=== PATIENT | male | born 1940 | race Caucasian/White ===

== ENCOUNTER 2017-01-29 15:17 | Inpatient (IN) | payer MEDICARE, OTHER ==
[2017-01-29 15:54] LABS: BASOPHILS % (AUTO) 0 % (0-3); EOSINOPHILS % (AUTO) 0 % (0-9); HEMATOCRIT 45 % (39-53); MEAN CORPUSCULAR HGB CONC 32.9 gm/dl (32.0-36.0); MEAN CORPUSCULAR VOLUME 94 fL (80-100); MONOCYTES % (AUTO) 8.6 % (0-12); NEUTROPHILS % (AUTO) 80.4 % (37-80)
[2017-01-29 16:11] LABS: ALBUMIN 3.4 gm/dl (3.4-5.0); CALCIUM 8.9 mg/dl (8.5-10.1); POTASSIUM 3.7 mMol/L (3.5-5.1)
[2017-01-29] MEDS ORDERED: PATIENT EDUCATION 1 MISC PRN (16:19)
[2017-01-29] MEDS ORDERED: NITROGLYCERIN 0.4 MG TAB SL PRN (17:34)
[2017-01-29] MEDS ORDERED: ACETAMINOPHEN 325 MG PO PRN (17:48)
[2017-01-29] MEDS ORDERED: MORPHINE SULFATE 10 MG/ML SOL IV PRN (17:49)
[2017-01-29 19:24] LABS: ABG PH 7.4 (7.35-7.45)
[2017-01-29] MEDS ORDERED: CEFTRIAXONE 1 GM PDS ONE (20:05)
[2017-01-29] MEDS ORDERED: SODIUM CHLORIDE 0.9% 100 ML 100 ML IV ONE (20:05)
[2017-01-29] MEDS: SOLUMEDROL 125 MG/2 ML 125 MG/2 ML PDS IV SCH (20:23)
[2017-01-29] MEDS: SODIUM CHLORIDE 0.9% FLUSH 10 ML SOL IV SCH (20:24)
[2017-01-29] MEDS: CEFTRIAXONE 1 GM PDS 1 GM in SODIUM CHLORIDE 0.9% 100 ML 100 ML IV SCH (20:31)
[2017-01-29] MEDS: ALBUTEROL/IPRATROPIUM 1 VIAL SOL INH SCH (20:36)
[2017-01-29] MEDS ORDERED: ENOXAPARIN 100 MG SOL SC ONE (22:00)
[2017-01-30] MEDS: ALBUTEROL/IPRATROPIUM 1 VIAL SOL INH SCH ×4 (01:58→20:35)
[2017-01-30] MEDS: SOLUMEDROL 125 MG/2 ML 125 MG/2 ML PDS IV SCH ×4 (01:59→20:35)
[2017-01-30] MEDS: SODIUM CHLORIDE 0.9% FLUSH 10 ML SOL IV SCH ×5 (02:00→20:35)
[2017-01-30 07:03] LABS: HEMATOCRIT 41 % (39-53); MEAN CORPUSCULAR HGB CONC 34.6 gm/dl (32.0-36.0); MEAN CORPUSCULAR VOLUME 93 fL (80-100)
[2017-01-30 07:10] LABS: CALCIUM 8.6 mg/dl (8.5-10.1); POTASSIUM 4.4 mMol/L (3.5-5.1)
[2017-01-30 07:36] LABS: BASOPHILS % (MANUAL) 0 % (0-3); EOSINOPHILS % (MANUAL) 0 % (0-9); LYMPHOCYTES % (MANUAL) 17 % (10-50)
[2017-01-30 07:37] LABS: NORMAL RBCS PRESENT
[2017-01-30] MEDS ORDERED: CEFTRIAXONE 1 GM PDS ONE (08:09)
[2017-01-30] MEDS ORDERED: SODIUM CHLORIDE 0.9% 100 ML 100 ML IV ONE (08:10)
[2017-01-30] MEDS: CEFTRIAXONE 1 GM PDS 1 GM in SODIUM CHLORIDE 0.9% 100 ML 100 ML IV SCH (08:17)
[2017-01-30] MEDS: FUROSEMIDE 40 MG TAB PO SCH ×2 (09:26→14:20)
[2017-01-30] MEDS: OXYBUTYNIN CHLORIDE 10 MG TER PO SCH (09:27)
[2017-01-30] MEDS: ASPIRIN 81 MG CHEWABLE CTB PO SCH (09:28)
[2017-01-30] MEDS: AMLODIPINE 5 MG TAB PO SCH (09:29)
[2017-01-30] MEDS: AZITHROMYCIN 250 MG TAB PO SCH (09:31)
[2017-01-30] MEDS: METOPROLOL SUCCINATE 50 MG ER TAB PO SCH (10:53)
[2017-01-30] MEDS: ACETAMINOPHEN 325 MG PO SCH ×2 (13:42→18:31)
[2017-01-30] MEDS ORDERED: CEFTRIAXONE 1 GM (PREMIX) SOL IV SCH (20:00)
[2017-01-31] MEDS: ACETAMINOPHEN 325 MG PO SCH ×2 (00:04→07:00)
[2017-01-31] MEDS: SOLUMEDROL 125 MG/2 ML 125 MG/2 ML PDS IV SCH ×2 (03:06→09:13)
[2017-01-31] MEDS: SODIUM CHLORIDE 0.9% FLUSH 10 ML SOL IV SCH ×2 (03:06→09:13)
[2017-01-31] MEDS: ALBUTEROL/IPRATROPIUM 1 VIAL SOL INH SCH ×2 (03:06→09:13)
[2017-01-31 07:07] LABS: CALCIUM 8.8 mg/dl (8.5-10.1)
[2017-01-31 08:24] VITALS: BP 125/82; RESP 18; TEMP 97.4
[2017-01-31] MEDS ORDERED: LOSARTAN POTASSIUM 50 MG TAB PO SCH (09:00)
[2017-01-31] MEDS ORDERED: POTASSIUM CHLORIDE 10 MEQ TER PO SCH (09:00)
[2017-01-31] MEDS: METOPROLOL SUCCINATE 50 MG ER TAB PO SCH (09:21)
[2017-01-31] MEDS: FUROSEMIDE 40 MG TAB PO SCH (09:23)
[2017-01-31] MEDS: AZITHROMYCIN 250 MG TAB PO SCH (09:24)
[2017-01-31] MEDS: AMLODIPINE 5 MG TAB PO SCH (09:25)
[2017-01-31] MEDS: ASPIRIN 81 MG CHEWABLE CTB PO SCH (09:26)
[2017-01-31] MEDS: OXYBUTYNIN CHLORIDE 10 MG TER PO SCH (09:26)
[2017-01-31 09:27] VITALS: PULSE 78; O2SAT 93
== END 2017-01-31 11:00 | disposition home or self-care (01) | DRG 204 ==
LOC: ACUTE CARE 15:24
PROVIDERS: ADMIT Family Medicine; ATTEND Family Medicine
DX: R06.00 Dyspnea, unspecified (principal); I10 Essential (primary) hypertension; R09.02 Hypoxemia; Z95.0 Presence of cardiac pacemaker; I25.10 Atherosclerotic heart disease of native coronary artery without angina pectoris; M48.06 Spinal stenosis, lumbar region; Z79.01 Long term (current) use of anticoagulants
CPT/HCPCS: 36415; 36600; 71020; 71275; 80048; 80053; 82803; 83880; 84484; 85007; 85025; 85027; 85378; 93005; 93012; 94640; J0696; J1650; J2930; J7620; Q9967

== ENCOUNTER 2017-02-22 12:16 | Emergency (ER) | payer MEDICARE, OTHER ==
[2017-02-22 12:38] LABS: BASOPHILS % (AUTO) 0 % (0-3); EOSINOPHILS % (AUTO) 0 % (0-9); HEMATOCRIT 40 % (39-53); MEAN CORPUSCULAR HGB CONC 34.9 gm/dl (32.0-36.0); MEAN CORPUSCULAR VOLUME 92 fL (80-100); MONOCYTES % (AUTO) 12.3 % (0-12); NEUTROPHILS % (AUTO) 74.5 % (37-80)
[2017-02-22] MEDS ORDERED: ASPIRIN 81 MG CHEWABLE CTB ONE (12:44)
[2017-02-22] MEDS ORDERED: NITROGLYCERIN 0.4 MG TAB SL ONE (12:44)
[2017-02-22] MEDS: ASPIRIN 325 MG TAB PO ONE (12:47)
[2017-02-22 12:55] LABS: CALCIUM 8.8 mg/dl (8.5-10.1); POTASSIUM 3.3 mMol/L (3.5-5.1)
[2017-02-22] MEDS: SODIUM CHLORIDE 0.9% FLUSH 10 ML SOL IV PRN (13:00)
[2017-02-22] MEDS: SODIUM CHLORIDE 0.9% 1000ML 1,000 ML IV ONE (13:08)
[2017-02-22] MEDS: NITROGLYCERIN 0.4 MG TAB SL PRN (13:35)
[2017-02-22] MEDS: HEPARIN SODIUM 5000 U/ML SOL IV ONE (14:00)
[2017-02-22 14:09] VITALS: TEMP 98.8
[2017-02-22] MEDS ORDERED: HEPARIN SODIUM 5000 U/ML SOL ONE (14:12)
[2017-02-22] MEDS: HEPARIN SODIUM 5000 U/ML SOL IV SCH (14:35)
[2017-02-22 14:52] VITALS: BP 95/53; PULSE 91; RESP 27; O2SAT 92
== END 2017-02-22 15:00 | disposition short-term general hospital (02) | DRG 313 ==
LOC: ED 12:16
DX: R07.9 Chest pain, unspecified (principal); R06.02 Shortness of breath
CPT/HCPCS: 36415; 71010; 80048; 83880; 84484; 85025; 85378; 85610; 85730; 93005; 96365; 96374; 99284; 99285; J1644

== ENCOUNTER 2017-05-21 10:42 | Inpatient (IN) | payer MEDICARE, OTHER ==
[2017-05-21] MEDS: SODIUM CHLORIDE 0.9% FLUSH 10 ML SOL IV SCH ×3 (11:00→21:37)
[2017-05-21] MEDS ORDERED: LEVOFLOXACIN 500 MG (PREMIX) 500 MG/100 ML SOL IV SCH (11:00)
[2017-05-21] MEDS ORDERED: ALBUTEROL NEB SOL 2.5MG/3ML 1 VIAL SOL NEB PRN (11:36)
[2017-05-21] MEDS: ALBUTEROL/IPRATROPIUM 1 VIAL SOL INH SCH ×3 (12:31→23:57)
[2017-05-21] MEDS ORDERED: FLUOCINONIDE APPL TOP PRN (19:57)
[2017-05-21] MEDS ORDERED: ACETAMINOPHEN 325 MG PO PRN (19:57)
[2017-05-21] MEDS: SOLUMEDROL 125 MG/2 ML 125 MG/2 ML PDS IV SCH (21:37)
[2017-05-21] MEDS: OXYBUTYNIN CHLORIDE 5 MG TAB PO SCH (21:40)
[2017-05-21] MEDS: FUROSEMIDE 40 MG TAB PO SCH (21:45)
[2017-05-21] MEDS ORDERED: ENOXAPARIN 40 MG SOL SC ONE (22:30)
[2017-05-22] MEDS: SOLUMEDROL 125 MG/2 ML 125 MG/2 ML PDS IV SCH ×3 (02:36→20:10)
[2017-05-22] MEDS: SODIUM CHLORIDE 0.9% FLUSH 10 ML SOL IV SCH ×4 (02:37→20:12)
[2017-05-22] MEDS: ALBUTEROL/IPRATROPIUM 1 VIAL SOL INH SCH ×3 (05:43→18:14)
[2017-05-22 07:24] LABS: HEMATOCRIT 39 % (39-53); MEAN CORPUSCULAR HGB CONC 34.2 gm/dl (32.0-36.0); MEAN CORPUSCULAR VOLUME 96 fL (80-100)
[2017-05-22 07:38] LABS: ALBUMIN 2.8 gm/dl (3.4-5.0); CALCIUM 8.4 mg/dl (8.5-10.1); POTASSIUM 3.7 mMol/L (3.5-5.1); THYROID STIMULATING HORMONE 0.543 uIU/ml (0.358-3.740)
[2017-05-22 08:24] LABS: BASOPHILS % (MANUAL) 0 % (0-3); EOSINOPHILS % (MANUAL) 0 % (0-9); LYMPHOCYTES % (MANUAL) 8 % (10-50); NORMAL RBCS PRESENT
[2017-05-22] MEDS: POTASSIUM CHLORIDE 10 MEQ TER PO SCH (08:33)
[2017-05-22] MEDS: FUROSEMIDE 40 MG TAB PO SCH ×2 (08:33→11:52)
[2017-05-22] MEDS: OXYBUTYNIN CHLORIDE 5 MG TAB PO SCH ×2 (08:33→20:11)
[2017-05-22] MEDS: METOPROLOL TARTRATE 25 MG TAB PO SCH (08:34)
[2017-05-22] MEDS: LOSARTAN POTASSIUM 50 MG TAB PO SCH (08:34)
[2017-05-22] MEDS ORDERED: OXYBUTYNIN 10 MG PO SCH (09:00)
[2017-05-22] MEDS: LEVOFLOXACIN 500 MG TAB PO SCH (10:31)
[2017-05-23] MEDS: ALBUTEROL/IPRATROPIUM 1 VIAL SOL INH SCH ×5 (00:13→23:00)
[2017-05-23] MEDS: SODIUM CHLORIDE 0.9% FLUSH 10 ML SOL IV SCH ×5 (02:02→18:29)
[2017-05-23 08:02] LABS: CALCIUM 8.6 mg/dl (8.5-10.1); POTASSIUM 3.7 mMol/L (3.5-5.1)
[2017-05-23] MEDS: SOLUMEDROL 125 MG/2 ML 125 MG/2 ML PDS IV SCH (08:13)
[2017-05-23] MEDS: FUROSEMIDE 40 MG TAB PO SCH ×2 (08:13→13:17)
[2017-05-23] MEDS: LOSARTAN POTASSIUM 50 MG TAB PO SCH (09:11)
[2017-05-23] MEDS: OXYBUTYNIN CHLORIDE 5 MG TAB PO SCH ×2 (09:11→20:17)
[2017-05-23] MEDS: POTASSIUM CHLORIDE 10 MEQ TER PO SCH (09:12)
[2017-05-23] MEDS: LEVOFLOXACIN 500 MG TAB PO SCH (09:12)
[2017-05-23] MEDS: METOPROLOL TARTRATE 25 MG TAB PO SCH (09:12)
[2017-05-23] MEDS: FUROSEMIDE 80 MG TAB PO SCH (13:20)
[2017-05-24] MEDS: SODIUM CHLORIDE 0.9% FLUSH 10 ML SOL IV SCH ×3 (01:49→18:13)
[2017-05-24] MEDS: ALBUTEROL/IPRATROPIUM 1 VIAL SOL INH SCH ×4 (05:00→23:28)
[2017-05-24] MEDS ORDERED: PREDNISONE 20 MG TAB PO SCH (09:00)
[2017-05-24] MEDS: POTASSIUM CHLORIDE 10 MEQ TER PO SCH (09:04)
[2017-05-24] MEDS: LEVOFLOXACIN 500 MG TAB PO SCH (09:04)
[2017-05-24] MEDS: OXYBUTYNIN CHLORIDE 5 MG TAB PO SCH ×2 (09:04→20:36)
[2017-05-24] MEDS: LOSARTAN POTASSIUM 50 MG TAB PO SCH (09:04)
[2017-05-24] MEDS: FUROSEMIDE 80 MG TAB PO SCH ×2 (09:05→13:11)
[2017-05-24] MEDS: METOPROLOL TARTRATE 25 MG TAB PO SCH (09:05)
[2017-05-25] MEDS: SODIUM CHLORIDE 0.9% FLUSH 10 ML SOL IV SCH ×2 (02:22→11:43)
[2017-05-25] MEDS: ALBUTEROL/IPRATROPIUM 1 VIAL SOL INH SCH ×2 (05:22→11:43)
[2017-05-25] MEDS: LOSARTAN POTASSIUM 50 MG TAB PO SCH (08:50)
[2017-05-25] MEDS: OXYBUTYNIN CHLORIDE 5 MG TAB PO SCH (08:50)
[2017-05-25] MEDS: POTASSIUM CHLORIDE 10 MEQ TER PO SCH (08:50)
[2017-05-25] MEDS: LEVOFLOXACIN 500 MG TAB PO SCH (08:51)
[2017-05-25] MEDS: METOPROLOL TARTRATE 25 MG TAB PO SCH (08:51)
[2017-05-25] MEDS: FUROSEMIDE 80 MG TAB PO SCH ×2 (08:51→11:43)
[2017-05-25 09:58] VITALS: BP 115/72; RESP 16; TEMP 97.6; O2SAT 95
[2017-05-25 11:18] VITALS: PULSE 110
== END 2017-05-25 12:40 | disposition home or self-care (01) | DRG 190 ==
LOC: ACUTE CARE 10:42
PROVIDERS: ADMIT Emergency Medicine; ATTEND Emergency Medicine
DX: J44.1 Chronic obstructive pulmonary disease with (acute) exacerbation (principal); J18.9 Pneumonia, unspecified organism; G71.0 Muscular dystrophy; I50.9 Heart failure, unspecified; R09.02 Hypoxemia
CPT/HCPCS: 36415; 80048; 80053; 83880; 84443; 85007; 85027; 87070; 87205; 94150; 94640; 94664; 94762; J1650; J1956; J2930; J7620

== ENCOUNTER 2017-07-22 10:39 | Inpatient (IN) | payer MEDICARE, OTHER ==
[2017-07-22 11:24] LABS: BASOPHILS % (AUTO) 1 % (0-3); EOSINOPHILS % (AUTO) 0 % (0-9); HEMATOCRIT 42 % (39-53); MEAN CORPUSCULAR HGB CONC 33.4 gm/dl (32.0-36.0); MEAN CORPUSCULAR VOLUME 92 fL (80-100); MONOCYTES % (AUTO) 18.1 % (0-12); NEUTROPHILS % (AUTO) 72.5 % (37-80)
[2017-07-22 11:35] LABS: ALBUMIN 3.5 gm/dl (3.4-5.0); CALCIUM 8.7 mg/dl (8.5-10.1); POTASSIUM 3.6 mMol/L (3.5-5.1)
[2017-07-22] MEDS ORDERED: ACETAMINOPHEN 325 MG PO PRN ×2 (13:25→13:28)
[2017-07-22] MEDS ORDERED: ALBUTEROL/IPRATROPIUM 1 VIAL SOL INH PRN (13:25)
[2017-07-22] MEDS ORDERED: ALBUTEROL HFA 60 PUFF/INHALER INH PRN (13:25)
[2017-07-22] MEDS ORDERED: MORPHINE SULFATE 10 MG/ML SOL IV PRN ×2 (13:28)
[2017-07-22] MEDS ORDERED: NITROGLYCERIN 0.4 MG TAB SL PRN (13:28)
[2017-07-22] MEDS ORDERED: ALUMINUM/MAGNESIUM 30 ML SUS PO PRN (13:28)
[2017-07-22] MEDS ORDERED: FUROSEMIDE 40 MG SOL IV ONE ×2 (13:33→19:34)
[2017-07-22] MEDS: SODIUM CHLORIDE 0.9% FLUSH 10 ML SOL IV SCH ×2 (14:26→20:37)
[2017-07-22] MEDS ORDERED: FUROSEMIDE 100 MG SOL IV ONE (19:48)
[2017-07-22] MEDS ORDERED: PREGABALIN 150 MG CAP PO ONE (21:00)
[2017-07-23 07:23] LABS: CALCIUM 8.5 mg/dl (8.5-10.1); POTASSIUM 3.7 mMol/L (3.5-5.1)
[2017-07-23 07:26] LABS: BASOPHILS % (AUTO) 1 % (0-3); EOSINOPHILS % (AUTO) 2 % (0-9); HEMATOCRIT 37 % (39-53); MEAN CORPUSCULAR HGB CONC 34.9 gm/dl (32.0-36.0); MEAN CORPUSCULAR VOLUME 92 fL (80-100); MONOCYTES % (AUTO) 15.8 % (0-12); NEUTROPHILS % (AUTO) 63.6 % (37-80)
[2017-07-23] MEDS ORDERED: PREGABALIN 75 MG CAP PO SCH (09:00)
[2017-07-23] MEDS ORDERED: FUROSEMIDE 100 MG SOL IV SCH ×2 (09:00→14:00)
[2017-07-23] MEDS ORDERED: POTASSIUM CHLORIDE 10 MEQ TER PO SCH (09:00)
[2017-07-23] MEDS ORDERED: AMLODIPINE 5 MG TAB PO SCH (09:00)
[2017-07-23] MEDS: SODIUM CHLORIDE 0.9% FLUSH 10 ML SOL IV SCH ×3 (09:17→20:32)
[2017-07-23] MEDS: LOSARTAN POTASSIUM 50 MG TAB PO SCH (09:18)
[2017-07-23] MEDS: AMLODIPINE 5 MG TAB PO SCH (09:18)
[2017-07-23] MEDS: METOPROLOL TARTRATE 25 MG TAB PO SCH (09:18)
[2017-07-24 07:09] LABS: CALCIUM 8.5 mg/dl (8.5-10.1); POTASSIUM 3.3 mMol/L (3.5-5.1)
[2017-07-24] MEDS: SODIUM CHLORIDE 0.9% FLUSH 10 ML SOL IV SCH ×3 (07:22→20:41)
[2017-07-24] MEDS: POTASSIUM CHLORIDE 10 MEQ TER PO SCH ×2 (09:26→20:40)
[2017-07-24] MEDS: AMLODIPINE 5 MG TAB PO SCH (09:38)
[2017-07-24] MEDS: FUROSEMIDE 80 MG TAB PO SCH ×2 (09:39→12:47)
[2017-07-24] MEDS: METOPROLOL TARTRATE 25 MG TAB PO SCH (09:39)
[2017-07-24] MEDS: LOSARTAN POTASSIUM 50 MG TAB PO SCH (09:39)
[2017-07-24 23:07] VITALS: RESP 20
[2017-07-25] MEDS: SODIUM CHLORIDE 0.9% FLUSH 10 ML SOL IV SCH (05:50)
[2017-07-25 07:42] LABS: CALCIUM 8.4 mg/dl (8.5-10.1); POTASSIUM 3.4 mMol/L (3.5-5.1)
[2017-07-25] MEDS: METOPROLOL TARTRATE 25 MG TAB PO SCH (09:50)
[2017-07-25] MEDS: POTASSIUM CHLORIDE 10 MEQ TER PO SCH (09:50)
[2017-07-25] MEDS: LOSARTAN POTASSIUM 50 MG TAB PO SCH (09:50)
[2017-07-25] MEDS: FUROSEMIDE 80 MG TAB PO SCH ×2 (09:50→12:20)
[2017-07-25] MEDS: AMLODIPINE 5 MG TAB PO SCH (09:58)
[2017-07-25 10:01] VITALS: BP 105/67; PULSE 83; TEMP 98; O2SAT 94
== END 2017-07-25 12:35 | disposition home or self-care (01) | DRG 292 ==
LOC: ACUTE CARE 10:42
PROVIDERS: ADMIT Family Medicine; ATTEND Family Medicine
DX: I50.9 Heart failure, unspecified (principal); G71.0 Muscular dystrophy; R09.02 Hypoxemia; I10 Essential (primary) hypertension; M48.061 Spinal stenosis, lumbar region without neurogenic claudication; R60.9 Edema, unspecified
CPT/HCPCS: 36415; 71020; 80048; 80053; 82550; 83880; 84484; 85025; 93005; 93012; 93306; 94150; J1940; Q9957